=== PATIENT | female | born 1990 | race Caucasian/White ===

== ENCOUNTER 2016-11-25 07:13 | Emergency (ER) | payer OTHER ==
[~2016-11-25] VITALS: Ht 157.5 cm; Wt 90.9 kg
[2016-11-25 09:34] VITALS: BP 118/74
== END 2016-11-25 09:38 | disposition home or self-care (01) ==
LOC: EMS 07:14
DX: S29.012A Strain of muscle and tendon of back wall of thorax, initial encounter (principal); S10.93XA Contusion of unspecified part of neck, initial encounter; W01.0XXA Fall on same level from slipping, tripping and stumbling without subsequent striking against object, initial encounter; Y93.89 Activity, other specified; Y92.89 Other specified places as the place of occurrence of the external cause; Y99.8 Other external cause status
CPT/HCPCS: 81025; 99283